=== PATIENT | female | born 1960 | race Caucasian/White ===

== ENCOUNTER 2024-05-24 21:47 | Emergency (ER) | payer BC ==
[~2024-05-24] VITALS: Ht 162.6 cm; Wt 94.6 kg
[2024-05-24 21:50] VITALS: BP 162/76; PULSE 104; TEMP 98.5; O2SAT 97
[2024-05-24] MEDS: clindamycin 150mg capsule PO ONE (23:19)
[2024-05-24] MEDS ORDERED: CLIN-197 PO (23:25)
[2024-05-24 23:32] VITALS: RESP 16
== END 2024-05-24 23:33 | disposition home or self-care (01) ==
LOC: ER 21:49
DX: K02.9 Dental caries, unspecified (principal); L03.211 Cellulitis of face
CPT/HCPCS: 99283; 99284